=== PATIENT | male | born 1980 | race Caucasian/White ===

== ENCOUNTER 2021-01-09 17:19 | Emergency (ER) | payer SELFPAY ==
[~2021-01-09] VITALS: Ht 182.9 cm; Wt 181.4 kg
[2021-01-09 17:37] VITALS: BP 175/90
[2021-01-09] MEDS ORDERED: KETOROLAC 30 MG/ML VIAL IM ONE (18:10)
[2021-01-09] MEDS ORDERED: NAPR-54 PO (18:17)
[2021-01-09 19:11] VITALS: BP 175/90
== END 2021-01-09 19:11 | disposition home or self-care (01) ==
LOC: MED 17:19
DX: S92.514A Nondisplaced fracture of proximal phalanx of right lesser toe(s), initial encounter for closed fracture (principal); J45.909 Unspecified asthma, uncomplicated; W22.09XA Striking against other stationary object, initial encounter; Y93.89 Activity, other specified; Y92.89 Other specified places as the place of occurrence of the external cause; Y99.8 Other external cause status
CPT/HCPCS: 73660; 96372; 99283; J1885

== ENCOUNTER 2021-09-30 15:46 | Emergency (ER) | payer SELFPAY ==
[~2021-09-30] VITALS: Ht 182.9 cm; Wt 174.2 kg
[~2021-09-30 15:46] MED LIST: NAPR-54 PO
[2021-09-30 15:52] VITALS: BP 147/92
--- NOTE | 2021-09-30 16:00 | NUR ---
MD MARTINS AT BEDSIDE.
--- NOTE | 2021-09-30 16:02 | NUR ---
40/M BIB SELF WITH C/O LEFT LOWER LEG PAIN X2 WEEKS WORSENING SINCE YESTERDAY. LEG IS RED, SWOLLEN AND TENDER TO TOUCH, PATIENT STATES PAIN HAS BEEN WORSENING WITH WALKING. PATIENT DENIES FEVER, CHILLS, SOB OR CP.
--- NOTE | 2021-09-30 16:17 | NUR ---
40 Y/O M C/O LEFT LOWER LEG PAIN 10/10 AND SWELLING, REDNESS AND EDEMA ON AND OFF BUT MORE SINCE YESTERDAY. NO CHILLS, FEVER, SOB OR SORE THROAT. DENIES INJURY. NKA PMH: ASTHMA
--- NOTE | 2021-09-30 16:25 | NUR ---
ULTRASOUND AT BEDSIDE.
[2021-09-30] MEDS ORDERED: CEPH-588 PO (16:53)
--- NOTE | 2021-09-30 17:08 | NUR ---
Patient discharged with v/s stable. Written and verbal after care instructions given and explained. Patient alert, oriented and verbalized understanding of instructions. Ambulatory with steady gait. All questions addressed prior to discharge. ID band removed. Patient advised to follow up with PMD. Rx of CEPHALEXIN given. Opportunity to ask questions provided and answered.
--- NOTE | 2021-09-30 17:10 | NUR ---
The patient's care was reviewed and supervised by Aimee Malcolm RN.
== END 2021-09-30 17:08 | disposition home or self-care (01) ==
LOC: MED 15:46
DX: L03.116 Cellulitis of left lower limb (principal); I10 Essential (primary) hypertension; J45.909 Unspecified asthma, uncomplicated; E66.9 Obesity, unspecified; Z68.43 Body mass index [BMI] 50.0-59.9, adult; Z90.49 Acquired absence of other specified parts of digestive tract; Z87.442 Personal history of urinary calculi; Z79.899 Other long term (current) drug therapy
CPT/HCPCS: 93971; 99284; Q0092

== ENCOUNTER 2021-10-30 14:18 | Emergency (ER) | payer SELFPAY ==
[~2021-10-30] VITALS: Ht 182.9 cm; Wt 168.7 kg
[~2021-10-30 14:18] MED LIST changes: +CEPH-588 PO
[2021-10-30] MEDS ORDERED: ALBUTEROL SULFATE/IPRATROPIU 3 ML SOL IH ONE ×5 (14:24→16:40)
[2021-10-30] MEDS ORDERED: MAG SULF 2000 MG/WATER PREMIX 50 ML IV ONE (14:25)
[2021-10-30] MEDS ORDERED: methylPREDNISolone SS 125 MG/2 ML VIAL IVP ONE (14:25)
[2021-10-30 14:32] VITALS: BP 124/72
[2021-10-30 14:56] LABS: BASOPHILS # (AUTO) 0.1 K/uL (0.00-0.22); BASOPHILS % (AUTO) 1.3 % (0.0-2.0); EOSINOPHILS # (AUTO) 0.4 K/uL (0-0.4); EOSINOPHILS % (AUTO) 4.2 % (0.0-4.0); HEMATOCRIT 40.6 % (36-52); HEMOGLOBIN 13.4 g/dL (12.0-18.0); LYMPHOCYTES % (AUTO) 28.1 % (20.5-51.1); MEAN CORPUSCULAR HEMOGLOBIN 29 pg (27-31); MEAN CORPUSCULAR HGB CONC 33 g/dL (33-37); MONOCYTES # (AUTO) 1.1 K/uL (0.8-1.0); MONOCYTES % (AUTO) 10.2 % (1.7-9.3); NEUTROPHILS % (AUTO) 56.2 % (42.2-75.2); PLATELET COUNT (AUTO) 399 K/uL (140-450); RED BLOOD CELL COUNT(AUTO) 4.66 MIL/uL (4.20-6.10); RED CELL DISTRIBUTION WIDTH 15.5 % (11.6-13.7); WHITE BLOOD COUNT (AUTO) 10.7 K/uL (4.8-10.8)
[2021-10-30 15:30] LABS: ALBUMIN 2.8 g/dL (3.4-5.0); ANION GAP 11.1 (8-16); CARBON DIOXIDE 29.7 mmol/L (21-32); CREATININE 0.8 mg/dL (0.6-1.3); POTASSIUM 4.8 mmol/L (3.5-5.1); TOTAL BILIRUBIN 0.5 mg/dL (0.0-1.0)
[2021-10-30] MEDS ORDERED: PRED20TA5 PO (15:56)
[2021-10-30] MEDS ORDERED: ALBU0.0912 INH (16:44)
[2021-10-30 17:10] VITALS: BP 108/63
== END 2021-10-30 17:10 | disposition home or self-care (01) ==
LOC: MED 14:18
DX: J45.901 Unspecified asthma with (acute) exacerbation (principal); Z79.899 Other long term (current) drug therapy
CPT/HCPCS: 36415; 71045; 80053; 83880; 84484; 85025; 93005; 94640; 96365; 96366; 96375; 99291; J2930; J3475; Q0092